=== PATIENT | female | born 1945 | race Caucasian/White ===

== ENCOUNTER 2018-09-06 17:00 | Emergency (ER) | payer MEDICARE, OTHER ==
[2018-09-06 17:35] VITALS: BP 149/74; PULSE 85; RESP 18; TEMP 98.4; O2SAT 100
--- NOTE | 2018-09-06 18:42 | ED PDOC ---
Arrival/HPI - General Historian: Patient, Family - Critical Care Narrative Critical Care (Text): 09/06/18 18:31 73F who recently underwent R knee placement presents w/ concerns of bruising, constipation, as well as nose bleed postoperatively. Patient reported that she noticed significant bruising above the R knee which she noticed today. Patient was concerned that she had not seen similar changes when her L knee was replaced many years prior. Patient is also concerned that s he had not had a BM since this past tuesday. Patient reported that she does take percocet prn post op pain as well as colace 10 BID. Patient denies any abd pain, nausea or vomiting, tolerates diet well, and she is passing gas at this time. Patient also has complaints of nose bleed; she was started on eliquis post operatively for DVT PPX. Bleeding was controlled w/ pressure No complaints of chest pain, dizziness/light headedness, shortness of breath, cough, dysuria/hematuria. - History of Present Illness Time/Duration: Prior to Arrival, < week Symptom Course: Unchanged Quality: Other <Stoney Orozco - Last Filed: 09/06/18 18:31> <Ismael Kaiser DO - Last Filed: 09/06/18 21:29> - General Chief Complaint: Lower Extremity Problem/Injury Time Seen by Provider: 09/06/18 17:31 Past Medical History - Provider Review Nursing Documentation Reviewed: Yes - Cardiac Hx Hypertension: Yes - Endocrine/Metabolic Hx Diabetes Mellitus Type 2: Yes - Hematological/Oncological Hx Anemia: Yes - Musculoskeletal/Rheumatological Hx Osteoporosis: Yes - Psychiatric Hx Substance Use: No - Surgical History Hx Orthopedic Surgery: Yes <Stoney Orozco - Last Filed: 09/06/18 18:31> Family/Social History - Physician Review Nursing Documentation Reviewed: Yes Family/Social History: Unknown Family HX Smoking Status: Never Smoked Hx Alcohol Use: No Hx Substance Use: No <Stoney Orozco - Last Filed: 09/06/18 18:31> Allergies/Home Meds <Stoney Orozco - Last Filed: 09/06/18 18:31> <Ismael Kaiser DO - Last Filed: 09/06/18 21:29> Allergies/Adverse Reactions: Allergies No Known Allergies Allergy (Verified 09/06/18 17:25) Home Medications: Home Meds Medication Instructions Recorded Confirmed Aspirin [Adult Low Dose Aspirin EC] 81 mg PO DAILY 10/20/15 10/20/15 Atorvastatin [Lipitor] 40 mg PO DAILY 10/20/15 10/20/15 Bisoprolol [Zebeta] 5 mg PO DAILY 10/20/15 10/20/15 Calcium Carbonate/Vitamin D2 1 tab PO DAILY 10/20/15 10/20/15 [Oyster Shell Calcium-Vit D Tab] Celecoxib 200 mg PO DAILY 10/20/15 10/20/15 Donepezil [Aricept] 10 mg PO DAILY 10/20/15 10/20/15 Ferrous Sulfate [Feosol] 325 mg PO DAILY 10/20/15 10/20/15 Losartan/Hydrochlorothiazide 1 tab PO DAILY 10/20/15 10/20/15 [Hyzaar 100-25 Tablet] Multivit,Iron,Min 5/Folic Acid 1 tab PO DAILY 10/20/15 10/20/15 [Strovite Forte Caplet] Pantoprazole [Protonix EC Tab] 40 mg PO DAILY 10/20/15 10/20/15 Review of Systems - Review of Systems Constitutional: Normal Eyes: Normal ENT: Epistaxis Respiratory: Normal. absent: SOB Cardiovascular: Normal Gastrointestinal: Constipation. absent: Abdominal Pain, Diarrhea, Nausea, Vomiting Genitourinary Female: Normal Musculoskeletal: Normal Skin: Other (hematoma) Neurological: Normal Endocrine: Normal Hemo/Lymphatic: Normal Psychiatric: Normal <Stoney Orozco - Last Filed: 09/06/18 18:31> Physical Exam Vital Signs Temp Pulse Resp BP Pulse Ox 09/06/18 17:19 98.4 F 85 18 149/74 100 Temperature: Afebrile Blood Pressure: Normal Pulse: Regular Respiratory Rate: Normal Appearance: Positive for: Well-Appearing, Non-Toxic, Comfortable Pain Distress: None Mental Status: Positive for: Alert and Oriented X 3 - Systems Exam Head: Present: Atraumatic, Normocephalic Pupils: Present: PERRL Extroacular Muscles: Present: EOMI Conjunctiva: Present: Normal Mouth: Present: Moist Mucous Membranes Nose (Internal): Present: No Active Bleeding, Other (Dried blood noted) Neck: Present: Normal Range of Motion Respiratory/Chest: Present: Clear to Auscultation, Good Air Exchange. No: Respiratory Distress, Accessory Muscle Use Cardiovascular: Present: Regular Rate and Rhythm, Normal S1, S2. No: Murmurs Abdomen: Present: Other (Soft nontender; flatus passed on palpation ). No: Tenderness, Distention, Peritoneal Signs Back: Present: Normal Inspection Upper Extremity: Present: Normal Inspection. No: Cyanosis, Edema Lower Extremity: Present: Normal Inspection, Other (RLE bandaged; R anterior, posterior, medial, and lateral aspect of thigh w/ significant bruising/ echymosis ). No: Edema Neurological: Present: GCS=15, CN II-XII Intact, Speech Normal Skin: Present: Warm, Dry, Normal Color. No: Rashes Psychiatric: Present: Alert, Oriented x 3, Normal Insight, Normal Concentration <Stoney Orozco - Last Filed: 09/06/18 18:31> Vital Signs Temp Pulse Resp BP Pulse Ox 09/06/18 17:19 98.4 F 85 18 149/74 100 <Ismael Kaiser DO - Last Filed: 09/06/18 21:29> Medical Decision Making ED Course and Treatment: 09/06/18 18:49 73F post R knee replacement 4 days ago c/o bruising, constipation, and nose bleed Significant ecchymosis noted near site of replacement No palpable collection appreciated on palpation. Abdomen soft / nontender w/ flatus on palpation. R nare w/ dried blood and no active bleeding noted bilaterally. Constipation most likely 2/2 percocet use; Tolearting diet passing flatus Patient to increase from colace 10 BID, to colace 10 TID Patient can start miralax if constipation does not resolve Echymosis appears to be chronic w/ postoperative changes Can continue w/ alternating head/cold Can DC patient home w/ appropriate follow up. <Stoney Orozco - Last Filed: 09/06/18 18:31> ED Course and Treatment: 09/06/18 19:00 73 year old female presents to the ED for evaluation of ecchymosis to right knee, constipation and nose bleed. In agreement with resident note which contains more details about the patient. Patient seen and evaluated with resident. Came up with plan and treatment together. <Ismael Kaiser DO - Last Filed: 09/06/18 21:29> - PA / ADVANCED MANUFACTURING TECHNICIAN / Resident Statement NATHAN has reviewed & agrees with the documentation as recorded. NATHAN has examined the patient and agrees with the treatment plan. - Scribe Statement The provider has reviewed the documentation as recorded by the Malloryibe Nadir Aragon. All medical record entries made by the Malloryibe were at my direction and personally dictated by me. I have reviewed the chart and agree that the record accurately reflects my personal performance of the history, physical exam, medical decision making, and the department course for this patient. I have also personally directed, reviewed, and agree with the discharge instructions and disposition. <Ismael Kaiser DO - Last Filed: 09/06/18 21:29> Disposition/Present on Arrival - Present on Arrival Any Indicators Present on Arrival: No History of DVT/PE: No History of Uncontrolled Diabetes: No Urinary Catheter: No History of Decub. Ulcer: No History Surgical Site Infection Following: None - Disposition Have Diagnosis and Disposition been Completed?: Yes Disposition Time: 19:13 Patient Plan: Discharge <Stoney Orozco - Last Filed: 09/06/18 18:31> - Disposition Disposition Time: 18:30 <Ismael Kaiser DO - Last Filed: 09/06/18 21:29> - Disposition Diagnosis: Constipation Disposition: HOME/ ROUTINE Condition: GOOD Discharge Instructions (ExitCare): High Fiber Diet, Constipation, Adult (DC) Additional Instructions: DALIA ABREU, thank you for letting us take care of you today. Your provider was Ismael Kaiser DO and you were treated for KNEE PAIN/ CONSTIPATION/ BRUISING AFTER SURGERY. The emergency medical care you received today was directed at your acute symptoms. If you were prescribed any medication, please fill it and take as directed. It may take several days for your symptoms to resolve. Return to the Emergency Department if your symptoms worsen, do not improve, or if you have any other problems. Please contact your doctor or call one of the physicians/clinics you have been referred to that are listed on the Patient Visit Information form that is included in your discharge packet. Bring any paperwork you were given at discharge with you along with any medications you are taking to your follow up visit. Our treatment cannot replace ongoing medical care by a primary care provider outside of the emergency department. Thank you for allowing the [facility] team to be part of your care today. If you had an X-Ray or CT scan: A Radiologist will review the ED reading if any change in treatment is needed we will contact you. If you had a blood, urine, or wound culture: It will take several days for the results, if any change in treatment is needed we will contact you. If you had an STI test: It will take 48 hours for the results. Please call after 1 week if you have not heard back. Prescriptions: Polyethylene Glycol 3350 [Miralax] 17 g PO Q8 PRN #5 ml PRN Reason: Constipation Forms: [employer] ([employer])
== END 2018-09-06 19:34 | disposition home or self-care (01) ==
LOC: ED 17:00
DX: K59.00 Constipation, unspecified (principal)